=== PATIENT | male | born 1985 | race Caucasian/White ===

== ENCOUNTER 2019-10-12 16:13 | Emergency (ER) | payer BC ==
[~2019-10-12] VITALS: Ht 190.5 cm; Wt 111.6 kg
[2019-10-12 16:26] VITALS: BP 151/76
--- NOTE | 2019-10-12 16:34 | NUR ---
Triage completed, ambulated out to ER waiting room.
--- NOTE | 2019-10-12 16:40 | NUR ---
PT TAKEN TO BED 2.
--- NOTE | 2019-10-12 17:13 | NUR ---
BIB SELF C/O N/V/D X 3 DAYS, A SUDDEN ONSET OF VOMITING ON . 07/19 LLQ PAIN. PT WENT TO ER AT [facility] YESTERDAY, WAS PRESCRIBED ZOFRAN, BUT N/V IS UNRELIEVED. PT REPORTS VOMIT TO BE BROWN/BLOODY. HAS NOT BEEN ABLE TO KEEP ANY FOOD OR DRINK DOWN. LAST MEAL WAS ON 10/10/2019. PMH: [facility] NKA
[2019-10-12] MEDS ORDERED: ONDANSETRON 4 MG/2 ML VIAL IVP ONE (17:20)
[2019-10-12] MEDS ORDERED: HALOPERIDOL IM 5 MG/ML VIAL IVP ONE (17:20)
[2019-10-12] MEDS ORDERED: NACL 0.9% 1,000 ML IV ONE ×3 (17:20→18:30)
[2019-10-12] MEDS ORDERED: METOCLOPRAMIDE 10 MG/2 ML INJ VIAL IVP ONE (17:25)
[2019-10-12] MEDS ORDERED: diphenhydrAMINE 50 MG/ML VIAL IVP ONE (17:25)
[2019-10-12 17:51] LABS: BASOPHILS % (AUTO) 0.3 % (0.0-2.0); EOSINOPHILS % (AUTO) 0.1 % (0.0-4.0); HEMOGLOBIN 14.5 g/dL (12.0-18.0); LYMPHOCYTES # (AUTO) 1.1 K/uL (2.0-11.5); MEAN CORPUSCULAR HEMOGLOBIN 29 pg (27-31); MEAN CORPUSCULAR HGB CONC 33 g/dL (33-37); MEAN CORPUSCULAR VOLUME 86.5 fL (80-94); MONOCYTES # (AUTO) 0.5 K/uL (0.8-1.0); MONOCYTES % (AUTO) 5.7 % (1.7-9.3); NEUTROPHILS # (AUTO) 6.7 K/uL (1.8-7.7); NEUTROPHILS % (AUTO) 80.9 % (42.2-75.2); PLATELET COUNT (AUTO) 183 K/uL (140-450); RED BLOOD CELL COUNT(AUTO) 5.08 MIL/uL (4.20-6.10); RED CELL DISTRIBUTION WIDTH 13.8 % (11.6-13.7); WHITE BLOOD COUNT (AUTO) 8.2 K/uL (4.8-10.8)
[2019-10-12 18:08] LABS: ANION GAP 14.6 (8-16); CARBON DIOXIDE 26.1 mmol/L (21-32); CREATININE 1.4 mg/dL (0.7-1.3); POTASSIUM 3.7 mmol/L (3.5-5.1)
[2019-10-12 18:15] LABS: ALBUMIN 4.4 g/dL (3.4-5.0); TOTAL BILIRUBIN 0.6 mg/dL (0.0-1.0)
--- NOTE | 2019-10-12 18:55 | NUR ---
PATIENT RESTING IN BED, HAS NOT BEEN ABLE TO PROVIDE URINE. NO COMPLAINTS OF PAIN AT THIS TIME. ALL NEEDS ARE MET.
--- NOTE | 2019-10-12 19:29 | NUR ---
REPORT RECEIVED FROM PREVIOUS RN. PATIENT RESTING WITH EYES CLOSED, BREATHING EVEN AND UNLABORED.
--- NOTE | 2019-10-12 19:30 | NUR ---
PATIENT STATES THAT HE IS STILL NAUSEA, DR BATRES NOTIFIED
[2019-10-12] MEDS ORDERED: PROMETHAZINE 25 MG/ML VIAL IVP ONE (19:35)
[2019-10-12 19:48] LABS: APPEARANCE,URINE CLEAR (CLEAR); BILIRUBIN,URINE 1+ (NEGATIVE); BLOOD, URINE TRACE-I (NEGATIVE); LEUKOCYTE ESTERASE ,URINE NEGATIVE (NEGATIVE); NITRITE, URINE NEGATIVE (NEGATIVE); UGLUCOSE NEGATIVE (NEGATIVE)
--- NOTE | 2019-10-12 19:50 | NUR ---
DR BATRES STATES THAT PATIENT NEEDS TO HAVE IVP OF MEDICATION AND DOES NOT WANT PHENERGEN IM
[2019-10-12 19:51] LABS: COLOR,URINE AMBER (YELLOW)
--- NOTE | 2019-10-12 19:58 | NUR ---
PATIENT AWARE TO NOTIFY NURSE IF FEEL DISCOMFORT OR PAIN IN LEFT AC WITH PHENERGEN MEDICATION
[2019-10-12 20:00] LABS: RBC,URINE 0-5 /HPF (0-5); WBC,URINE NONE SEEN /HPF (0-5)
--- NOTE | 2019-10-12 20:30 | NUR ---
PATIENT STILL HAS NAUSEA, [facility] NOTIFIED
--- NOTE | 2019-10-12 20:37 | NUR ---
DR BATRES AT BEDSIDE
--- NOTE | 2019-10-12 21:19 | NUR ---
PATIENT RESTING WITH EYES CLOSED, BREATHING EVEN AND UNLABORED
[2019-10-12 21:38] VITALS: BP 133/65
--- NOTE | 2019-10-12 21:38 | NUR ---
Patient discharged with v/s stable. Written and verbal after care instructions ABOUT NAUSEA, VOMITTING, AND GASTROPARESIS given and explained. Patient alert, oriented and verbalized understanding of instructions. Ambulatory with steady gait. All questions addressed prior to discharge. ID band removed. Patient advised to follow up with PMD. Rx of ZOFRAN, REGLAN, AND VISTARIL given. Patient educated on indication of medication including possible reaction and side effects. Opportunity to ask questions provided and answered.
--- NOTE | 2019-10-15 11:08 | NUR ---
Late entry. Confirmed with RN that 0.9 NS IV completed at 1920
== END 2019-10-12 21:38 | disposition home or self-care (01) ==
LOC: MED 16:13
DX: E86.0 Dehydration (principal); R11.10 Vomiting, unspecified; K31.84 Gastroparesis; K50.90 Crohn's disease, unspecified, without complications; F12.90 Cannabis use, unspecified, uncomplicated
CPT/HCPCS: 36415; 80053; 81001; 83690; 85025; 93005; 96361; 96374; 96375; 99284; J1200; J1630; J2550; J2765; J7030